=== PATIENT | male | born 1955 | race Caucasian/White ===

== ENCOUNTER 2018-10-08 10:28 | Emergency (ER) | payer BC ==
[2018-10-08] MEDS: ONDANSETRON (ODT) 4 MG TAB ODT (10:50)
[2018-10-08] MEDS: KETOROLAC 30 MG INJ IM (10:50)
[2018-10-08] MEDS: ACETAMINOPHEN 325 MG TAB PO (10:51)
== END 2018-10-08 12:12 | disposition home or self-care (01) ==
LOC: FTE 10:28
DX: J11.1 Influenza due to unidentified influenza virus with other respiratory manifestations (principal)
CPT/HCPCS: 71045; 87400; 96372; 99284-25